=== PATIENT | male | born 1960 | race Caucasian/White ===

== ENCOUNTER 2017-05-26 20:18 | Observation (INO) ==
[2017-05-26] MEDS ORDERED: Aspirin 81 MG TAB.CHEW PO ONE (20:21)
[2017-05-26] MEDS ORDERED: Ketorolac 30 MG/ML VIAL IVP ONE (20:21)
--- NOTE | 2017-05-26 20:23 | Emergency Department Note ---
Disposition Clinical Impression: Chest pain Disposition: Admitted As Inpatient Condition: Fair Time of Disposition: 22:16 ([facility]) Chest Pain HPI - General Chief Complaint: ED Chest Pain Stated Complaint: chest pain Time Seen by Provider: 05/26/17 20:20 Source: patient Mode of arrival: ambulatory Limitations: no limitations Vital Signs Reviewed: Yes Nursing Notes Reviewed: Yes - History of Present Illness HPI Narrative: 56-year-old male with right-sided chest pain just lateral to the sternum hurts to breathe [place] maneuvers with raising the arm but is due to have a stress test this coming Monday he denies blurred vision double vision loss vision has been having intermittent chest pains had no cough no hemoptysis no sputum production he denies any abdominal pain and discomfort patient states is worse with respiration worse with movement denies calf pain tenderness she releases denies any additional complaints the entire review of systems Pt complaint: chest pain Onset (ago): hour(s) Duration: intermittent Onset: during exertion Pain Location: right chest Severity: moderate Severity scale (1-10): 5 Quality: aching Pain Radiation: none Improves with: nothing, nitroglycerin (No change) Worsens with: nothing Associated symptoms: Reports: nausea, dyspnea. Denies: vomiting, diaphoresis, sense of impending doom, syncope, palpitations, cough, leg swelling Treatments prior to arrival chest pain: aspirin - Related Data Home Medications Medication Instructions Recorded Confirmed Insulin Glargine,Hum.rec.anlog 75 units SQ HS 03/16/15 05/26/17 [Lantus Solostar] Pravastatin Sodium [Pravachol] 80 mg PO DAILY 03/16/15 05/26/17 metFORMIN [Glucophage] 1,000 mg PO BIDWM 03/16/15 05/26/17 Multivitamin [Multivitamins] 1 each PO DAILY 05/04/16 05/26/17 Losartan Potassium [Cozaar] 50 mg PO DAILY 05/09/16 05/26/17 glipiZIDE [Glipizide] 10 mg PO DAILY 05/09/16 05/26/17 Furosemide [Lasix] 80 mg PO DAILY 11/21/16 05/26/17 Potassium Chloride [Klor-Con 10] 20 meq PO DAILY 11/21/16 05/26/17 Previous Rx's Medication Instructions Recorded Metoprolol [Lopressor] 50 mg PO BID #60 tablet 05/17/16 Allergies Allergy/AdvReac Type Severity Reaction Status Date / Time No Known Allergies Allergy Verified 05/09/16 07:16 All systems ED: reviewed and negative except as stated. Review of Systems: As Per HPI Constitutional: Denies: fever, chills, weakness Eyes: Denies: eye pain, eye discharge ENT ED: Denies: ear pain, throat pain Cardiovascular: Reports: chest pain. Denies: palpitations Respiratory: Denies: cough, dyspnea, wheezes Gastrointestinal: Denies: abdominal pain, nausea, vomiting Genitourinary: Denies: urgency, dysuria Musculoskeletal: Denies: back pain Integumentary: Denies: rash, abrasion Neurological: Denies: headache Psychiatric: Denies: anxiety Endocrine: Denies: fatigue Hematological/Lymphatic: Denies: easy bleeding Chest Pain PMH - Past Medical History Medical history: Reports: arthritis, diabetes, hyperlipidemia, hypertension, myocardial infarction Surgical history: Reports: appendectomy, cholecystectomy, coronary bypass (CABG) , orthopedic, other, other Psychiatric history: Reports: no psych history - Social History Smoking Status: Former smoker Alcohol use: Reports: none Drug use: Reports: none Physical Exam - General Limitations: no limitations General appearance: alert, in no apparent distress, obese - Head Head exam: atraumatic, normocephalic, normal inspection - Eye Eye exam: Present: normal appearance, PERRL, EOMI - ENT ENT exam: normal exam, normal oropharynx, mucous membranes moist, TM's normal bilaterally, normal external ear exam - Neck Neck exam: Present: normal inspection, full ROM, trachea midline - Chest Chest inspection: Present: normal inspection, symmetric chest wall rise - Respiratory Respiratory exam: Present: normal lung sounds bilaterally - Cardiovascular Cardiovascular exam: Present: regular rate, normal rhythm, normal heart sounds - Abdominal Exam Abdominal exam: Present: soft, Non-Tender, normal bowel sounds. Absent: mass, pulsatile mass - Extremities Exam Extremities exam: Present: normal inspection, full ROM, normal capillary refill , other (Left leg is a below-knee amputation). Absent: tenderness, pedal edema , joint swelling, calf tenderness - Back Exam Back exam: Present: normal inspection - Neurological Exam Neurological exam: Present: alert, oriented X3, CN II-XII intact, normal gait - Psychiatric Psychiatric exam: Present: normal affect, normal mood - Skin Skin exam: Present: warm, dry, intact, normal color Course Course Narrative: Seen and examined patient is now resting comfortably pain free patient tried nitroglycerin at home with no relief as result patient was admitted observation due the fact he is having the stress on Monday admitted services Dr. Piña Vital Signs Temperature 96.5 F L 05/26/17 20:18 Pulse Rate 95 05/26/17 20:18 Respiratory Rate 16 05/26/17 20:18 Blood Pressure 189/86 05/26/17 20:18 O2 Sat by Pulse Oximetry 96 05/26/17 20:18 Temperature 98.2 F 05/26/17 23:16 Pulse Rate 90 05/26/17 23:16 Respiratory Rate 18 05/26/17 23:16 Blood Pressure 150/92 05/26/17 23:16 O2 Sat by Pulse Oximetry 95 05/26/17 23:16 Oxygen Delivery Oxygen Delivery Room Air Chest Pain - Differential Diagnosis Likely: chest pain - Medical Records Medical records reviewed: Yes I reviewed the patient's medical records. - Lab Data Lab results reviewed: Yes I reviewed the patient's lab results. Result diagrams: 05/26/17 20:38 05/26/17 20:38 Lab Results 05/26/17 05/26/17 05/26/17 Range/Units 20:38 20:38 20:38 WBC 6.8 (4.3-11.1) K/mcL RBC 5.73 H (4.19-5.50) M/mcL Hgb 16.6 (12.9-16.9) g/dL Hct 48.3 (37.5-50.1) % MCV 84.3 (83.0-100.0) fL MCH 29.0 (28.0-33.3) pg MCHC 34.4 (31.6-35.5) g/dL RDW 13.4 (11.5-14.5) % Plt Count 222 (140-400) K/mcL MPV 9.9 (9.4-12.4) fL Immature Gran % 0.7 (0-4) % Seg Neutrophils % 47.5 % Lymphocytes % 42.7 % Monocytes % 7.5 % Eosinophils % 1.2 % Basophils % 0.4 % Neutrophils # 3.2 (1.6-8.9) K/mcL Lymphocytes # 2.9 (0.6-4.6) K/mcL Monocytes # 0.5 (0.0-1.3) K/mcL Eosinophils # 0.1 (0.0-0.6) K/mcL Basophils # 0.0 (0.0-0.2) K/mcL PT 10.1 (9.4-12.1) Seconds INR 0.9 APTT 28.7 (26.0-36.0) Seconds Sodium (136-145) mEq/L Potassium (3.5-4.5) mEq/L Chloride (98-109) mEq/L Carbon Dioxide (19-29) mEq/L BUN (8-26) mg/dL Creatinine (0.72-1.25) mg/dL Est GFR ( Amer) (> 60) Est GFR (Non-Af Amer) (> 60) BUN/Creatinine Ratio (6-26) Glucose (70-99) mg/dL Calculated Osmolality (280-300) Calcium (8.6-10.8) mg/dL Total Bilirubin (0.2-1.2) mg/dL AST (5-34) Units/L ALT (0-55) Units/L Alkaline Phosphatase (38-126) Units/L Troponin I (0-0.03) ng/mL Serum Total Protein (6.0-8.3) g/dL Albumin (3.5-5.0) g/dL Globulin (2.4-3.5) g/dL Albumin/Globulin Ratio (1.1-2.2) 05/26/17 05/26/17 Range/Units 20:38 20:38 WBC (4.3-11.1) K/mcL RBC (4.19-5.50) M/mcL Hgb (12.9-16.9) g/dL Hct (37.5-50.1) % MCV (83.0-100.0) fL MCH (28.0-33.3) pg MCHC (31.6-35.5) g/dL RDW (11.5-14.5) % Plt Count (140-400) K/mcL MPV (9.4-12.4) fL Immature Gran % (0-4) % Seg Neutrophils % % Lymphocytes % % Monocytes % % Eosinophils % % Basophils % % Neutrophils # (1.6-8.9) K/mcL Lymphocytes # (0.6-4.6) K/mcL Monocytes # (0.0-1.3) K/mcL Eosinophils # (0.0-0.6) K/mcL Basophils # (0.0-0.2) K/mcL PT (9.4-12.1) Seconds INR APTT (26.0-36.0) Seconds Sodium 140 (136-145) mEq/L Potassium 4.2 (3.5-4.5) mEq/L Chloride 103 (98-109) mEq/L Carbon Dioxide 22 (19-29) mEq/L BUN 17 (8-26) mg/dL Creatinine 1.31 H (0.72-1.25) mg/dL Est GFR ( Amer) > 60 (> 60) Est GFR (Non-Af Amer) 56 L (> 60) BUN/Creatinine Ratio 13 (6-26) Glucose 257 H (70-99) mg/dL Calculated Osmolality 300 (280-300) Calcium 10.1 (8.6-10.8) mg/dL Total Bilirubin 0.4 (0.2-1.2) mg/dL AST 22 (5-34) Units/L ALT 29 (0-55) Units/L Alkaline Phosphatase 70 (38-126) Units/L Troponin I 0.01 (0-0.03) ng/mL Serum Total Protein 8.1 (6.0-8.3) g/dL Albumin 3.6 (3.5-5.0) g/dL Globulin 4.5 H (2.4-3.5) g/dL Albumin/Globulin Ratio 0.8 L (1.1-2.2) - Radiology Data Radiology results reviewed: Yes I reviewed the patient's radiology results. ITS Impressions Chest CT 05/26/17 20:20 IMPRESSION: No acute intrathoracic process identified D/ / Malinda Pascal Cha, MD / Malinda Pascal Cha, MD Interpreting Provider: Malinda Pascal Cha, MD - EKG Data EKG attestation: Yes I reviewed and interpreted this EKG. EKG results narrative: Sinus rhythm right bundle branch block rate 95 pr 128 qrs 146 qt 388 r 123 Heart Score - Score History: Moderately Suspicious EKG: Non Specific repolarisation Disturbance Age: 45-65 Risk Factors: Equal/Greater than 3 risk factor or history of atherosclerotic disease Troponin: Less than normal limit HEART Score Total: 5 Critical Care Time Critical Care Time: No
[2017-05-26 20:48] LABS: Basophils % 0.4 %; Eosinophils # 0.1 K/mcL (0.0-0.6); Eosinophils % 1.2 %; Hematocrit 48.3 % (37.5-50.1); Hemoglobin 16.6 g/dL (12.9-16.9); Immature Granulocytes % 0.7 % (0-4); Lymphocytes # 2.9 K/mcL (0.6-4.6); Lymphocytes % 42.7 %; Mean Corpuscular HGB Conc 34.4 g/dL (31.6-35.5); Mean Corpuscular Volume 84.3 fL (83.0-100.0); Mean Platelet Volume 9.9 fL (9.4-12.4); Monocytes # 0.5 K/mcL (0.0-1.3); Monocytes % 7.5 %; Neutrophils # 3.2 K/mcL (1.6-8.9); Platelet Count 222 K/mcL (140-400); Red Blood Count 5.73 M/mcL (4.19-5.50); Red Cell Distribution Width 13.4 % (11.5-14.5); Segmented Neutrophils % 47.5 %
[2017-05-26 20:51] LABS: INR 0.9; Prothrombin Time 10.1 Seconds (9.4-12.1)
[2017-05-26 21:02] LABS: Alanine Aminotransferase 29 Units/L (0-55); Albumin 3.6 g/dL (3.5-5.0); Albumin/Globulin Ratio 0.8 (1.1-2.2); Alkaline Phosphatase 70 Units/L (38-126); Aspartate Amino Transferase 22 Units/L (5-34); BUN/Creatinine Ratio 13 (6-26); Bilirubin,Total 0.4 mg/dL (0.2-1.2); Blood Urea Nitrogen 17 mg/dL (8-26); Calcium 10.1 mg/dL (8.6-10.8); Carbon Dioxide 22 mEq/L (19-29); Chloride 103 mEq/L (98-109); Globulin 4.5 g/dL (2.4-3.5); Glucose 257 mg/dL (70-99); Osmolality,Calculated 300 (280-300); Potassium 4.2 mEq/L (3.5-4.5); Total Protein 8.1 g/dL (6.0-8.3); eGFR For African Americans > 60 (> 60); eGFR For Non-African Americans 56 (> 60)
[2017-05-26 21:06] LABS: Sodium 140 mEq/L (136-145)
[2017-05-27] MEDS ORDERED: *HR* HYDROcodone/Acet 5/325 mg TABLET PO PRN
[2017-05-27] MEDS ORDERED: D5% in Water 1,000 ML IVC PRN
[2017-05-27] MEDS ORDERED: Naloxone 0.4 MG/ML INJ IVP PRN
[2017-05-27] MEDS ORDERED: Dextrose Gel 15 GM PO PRN ×2
[2017-05-27] MEDS ORDERED: Ondansetron ODT 4 MG TAB.RAPDIS SL PRN
[2017-05-27] MEDS ORDERED: *HR* Dextrose 50 % in Water (Syg) 50 ML SYRINGE IVP PRN
[2017-05-27 02:53] LABS: Basophils % 0.3 %; Eosinophils # 0.1 K/mcL (0.0-0.6); Eosinophils % 1.3 %; Hematocrit 43.1 % (37.5-50.1); Hemoglobin 14.7 g/dL (12.9-16.9); Lymphocytes # 3.2 K/mcL (0.6-4.6); Lymphocytes % 46.3 %; Mean Corpuscular HGB Conc 34.1 g/dL (31.6-35.5); Mean Corpuscular Hemoglobin 29.2 pg (28.0-33.3); Mean Corpuscular Volume 85.5 fL (83.0-100.0); Mean Platelet Volume 9.5 fL (9.4-12.4); Monocytes # 0.6 K/mcL (0.0-1.3); Monocytes % 8.3 %; Platelet Count 187 K/mcL (140-400); Red Blood Count 5.04 M/mcL (4.19-5.50); Red Cell Distribution Width 13.5 % (11.5-14.5); Segmented Neutrophils % 42.8 %
[2017-05-27 03:05] LABS: BUN/Creatinine Ratio 21 (6-26); Blood Urea Nitrogen 27 mg/dL (8-26); Calcium 9.6 mg/dL (8.6-10.8); Carbon Dioxide 25 mEq/L (19-29); Chloride 107 mEq/L (98-109); Glucose 105 mg/dL (70-99); Osmolality,Calculated 301 (280-300); Sodium 143 mEq/L (136-145); eGFR For African Americans > 60 (> 60); eGFR For Non-African Americans 56 (> 60)
[2017-05-27] MEDS ORDERED: Insulin LISPRO 300 UNITS/3 ML VIAL SQ SCH (07:30)
[2017-05-27] MEDS ORDERED: *HR* Metformin 500 MG TABLET PO SCH (08:00)
[2017-05-27] MEDS ORDERED: Furosemide 40 MG TABLET PO SCH (09:00)
[2017-05-27] MEDS ORDERED: *HR* GlipiZIDE 5 MG TABLET PO SCH (09:00)
[2017-05-27] MEDS ORDERED: Multivit/Ca/Min/Fe/FA 1 TAB TABLET PO SCH (09:00)
[2017-05-27 10:35] VITALS: BP 116/71
--- NOTE | 2017-05-27 12:04 | Internal Med History&Physical ---
Date of Encounter: 05/27/17 Time of Encounter: 11:30 Assessment and Plan (1) Chest pain Current visit: Yes Status: Acute Now resolved. Doubt myocardial ischemic origin. Repeat cardiac enzymes were ordered through emergency room. Qualifiers: Chest pain type: unspecified Qualified Code(s): R07.9 - Chest pain, unspecified (2) Azotemia Current visit: Yes Status: Acute Creatinine was 1.13 on 12/21/2016. His PCP can monitor this. (3) Hypertension Current visit: No Status: Chronic Continue Cozaar and Lopressor. Qualifiers: Hypertension type: essential hypertension Qualified Code(s): I10 - Essential (primary) hypertension Internal Medicine - H&P: HPI Chief complaint: Chest pain Admitted From: Emergency Dept Plans for Post Hospital Care: Home History of present illness: Mr. Dinh is a 56 year old male who came to emergency room stating he had onset of chest pain while propelling himself in his wheelchair back up his driveway. He describes it as a sharp discomfort in his right chest area. He has had the sensation several times over the past 2 months but was previously less severe and shorter duration. His daughter insisted he come to emergency room the following day when the pain persisted. He was evaluated and admitted to [facility] floor for ongoing care needs. He states the pain has resolved now and he feels back to his baseline and wishes to be discharged home. Cardiovascular history is significant for hypertension but no known ME heart failure DVT or pulmonary embolus. He has known ASHD and had 3 vessel CABG April 2016 at [facility]. Past Med Surg Social Fam HX - Past Medical History Medical history: arthritis, diabetes, hyperlipidemia, hypertension, myocardial infarction Psychiatric history: no psych history - Past Surgical History Surgical History: appendectomy, cholecystectomy, coronary bypass (CABG), orthopedic, other, other - Social History Smoking Status: Former smoker Smokeless Tobacco Status: No Alcohol use: none Drug use: none - Family History Mother Family Member Ethnicity: Non- Living Status: Hx Family Cardiac Disorders: Yes Hx Family Respiratory Disorders: Yes Hx Family Cancer: Yes Hx Family GI Disorders: Yes Hx Family Endocrine Disorder: Yes Hx Family Neuromuscular Disorders: No Hx Family Neurologic Disorders: No Hx Family HEENT Disorders: No Hx Family Autoimmune Disorders: No Father Living Status: Still Living Hx Family Cardiac Disorders: Yes Internal Medicine - H&P: Meds Insulin Glargine,Hum.rec.anlog [Lantus Solostar] 75 units SQ HS 03/16/15 [ History] Pravastatin Sodium [Pravachol] 80 mg PO DAILY 03/16/15 [History] metFORMIN [Glucophage] 1,000 mg PO BIDWM 03/16/15 [History] Multivitamin [Multivitamins] 1 each PO DAILY 05/04/16 [History] Losartan Potassium [Cozaar] 50 mg PO DAILY 05/09/16 [History] glipiZIDE [Glipizide] 10 mg PO DAILY 05/09/16 [History] Metoprolol [Lopressor] 50 mg PO BID #60 tablet 05/17/16 [Rx] Furosemide [Lasix] 80 mg PO DAILY 11/21/16 [History] Potassium Chloride [Klor-Con 10] 20 meq PO DAILY 11/21/16 [History] 3 Allergy/AdvReac Type Severity Reaction Status Date / Time No Known Allergies Allergy Verified 05/09/16 07:16 All Systems PM: A 10-system review of systems was performed and is negative for pertinent findings except as documented above in the HPI. Review of systems: Gen.: He states his weight has been stable past few months Cardiovascular: As per history of present illness Respiratory: He smoked from age [age] up to one pack per day. He does not have chronic lung disease and does not use home oxygen. He has not been tested for sleep apnea. GI: He has had cholecystectomy. He denies disorders of his liver or exocrine pancreas. He had 4 precancerous polyps removed on April 2017 colonoscopy. : He has had elevated creatinine on several labs in the past. He denies knowledge of chronic kidney disease. Denies other kidney bladder or prostate disorders. Neurologic: He denies large distribution strokes or seizures. Endocrine: He was diagnosed with DM 2 in 1999. He has hyperlipidemia but denies thyroid disease Hematology/oncology: Denies blood disorders cancers or anemia Psychiatric: He denies anxiety depression or other mental health issues Musk skeletal: He has DJD but denies other bone joint or muscle disorders. He had left BKA 2009 for nonhealing diabetic foot ulcer. He had right great toe amputation several years ago. - Constitutional Vitals: Temp Pulse Resp BP Pulse Ox 97.8 F 83 18 116/71 97 05/27/17 10:32 05/27/17 10:32 05/27/17 10:32 05/27/17 10:32 05/27/17 10:32 Exam: Gen.: He is a well-developed well-nourished male who appears in no acute distress at present time HEENT: Head is atraumatic and normocephalic. Eyes: EOMI. There is no scleral icterus. Mouth: Mucosa is moist. Neck: Supple and nontender. There is no thyromegaly or adenopathy noted. Heart: Regular without murmurs gallops or ectopics Lungs: No wheezes or crackles are heard. Chest: He is not tender in his costosternal joints to palpation. Abdomen: He has a large abdomen. There is a well-healed right upper quadrant scar. There are healed upper abdominal midline incisions from CABG surgery. The abdomen is nontender to palpation. Extremities: The right foot shows great toe amputation with well-healed scar. Dorsalis pedis and posterior tibial pulses are nonpalpable. He has well-healed left BKA. Neurologic: Mental status: He is talkative and a good historian. Cranial nerves : Smile is symmetric. Forehead wrinkles bilaterally. Tongue protrudes midline. EOMI. Motor: There is no pronator drift. Cerebellar: Finger to nose is intact bilaterally. Skin: Warm and dry Internal Med - H&P Results - Labs CBC & Chem 7: 05/27/17 02:43 05/27/17 02:43 Labs: Short CBC 05/27/17 Range/Units 02:43 WBC 7.0 (4.3-11.1) K/mcL Hgb 14.7 D (12.9-16.9) g/dL Hct 43.1 (37.5-50.1) % Plt Count 187 (140-400) K/mcL Neutrophils # 3.0 (1.6-8.9) K/mcL BMP 05/27/17 02:43 Sodium 143 Potassium 4.0 Chloride 107 Carbon Dioxide 25 BUN 27 H D Creatinine 1.31 H Glucose 105 H Calcium 9.6 Cardiac Enzymes 05/27/17 05/27/17 Range/Units 02:43 07:43 Troponin I 0.01 0.01 (0-0.03) ng/mL
--- NOTE | 2017-05-27 12:18 | Discharge Summary ---
Date of Encounter: 05/27/17 Time of Encounter: 11:30 - Discharge Diagnosis (1) Chest pain Priority: Primary Status: Resolved Qualifiers: Chest pain type: unspecified Qualified Code(s): R07.9 - Chest pain, unspecified (2) Azotemia Priority: Secondary Status: Acute (3) Hypertension Priority: Secondary Status: Chronic Qualifiers: Hypertension type: essential hypertension Qualified Code(s): I10 - Essential (primary) hypertension - Discharge Medications Home Medications: Insulin Glargine,Hum.rec.anlog [Lantus Solostar] 75 units SQ HS 03/16/15 [ History] Pravastatin Sodium [Pravachol] 80 mg PO DAILY 03/16/15 [History] metFORMIN [Glucophage] 1,000 mg PO BIDWM 03/16/15 [History] Multivitamin [Multivitamins] 1 each PO DAILY 05/04/16 [History] Losartan Potassium [Cozaar] 50 mg PO DAILY 05/09/16 [History] glipiZIDE [Glipizide] 10 mg PO DAILY 05/09/16 [History] Metoprolol [Lopressor] 50 mg PO BID #60 tablet 05/17/16 [Rx] Furosemide [Lasix] 80 mg PO DAILY 11/21/16 [History] Potassium Chloride [Klor-Con 10] 20 meq PO DAILY 11/21/16 [History] Allergies/Adverse Reactions: 3 Allergy/AdvReac Type Severity Reaction Status Date / Time No Known Allergies Allergy Verified 05/09/16 07:16 Date of admission: 05/26/17 22:27 Primary care physician: Jerrell Drake Jr, MD - Patient Status Disposition: Home, Self-Care Condition: Fair Overall status at discharge: patient is progressing back to baseline - Discharge Instructions Follow Up With: Jerrell Drake Jr, MD [Primary Care Provider] - - Diet and Activity Activity: resume usual activities as tolerated Diet: diabetic diet Hospital course: Mr. Dinh is a 56 year old male who came to emergency room stating he had onset of chest pain while propelling himself in his wheelchair back up his driveway. He describes it as a sharp discomfort in his right chest area. He has had the sensation several times over the past 2 months but was previously less severe and shorter duration. His daughter insisted he come to emergency room the following day when the pain persisted. He was evaluated and admitted to [facility] for ongoing care needs. Initial orders were written by the emergency room physician. I saw him on May 27 and performed a history physical and discharge. Repeat cardiac enzymes showed no evidence of myocardial damage. When I saw him I felt the pain was likely to be chest wall origin. The pain was resolved when I saw him and could not be reproduced with activity. He felt stable for discharge home which I felt was reasonable. 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 I discussed with him the acute azotemia. His PCP can monitor this. - Time Spent with Patient Total time spent providing and/or coordinating discharge services: - Constitutional Vitals: Temp Pulse Resp BP Pulse Ox 97.8 F 83 18 116/71 97 05/27/17 10:32 05/27/17 10:32 05/27/17 10:32 05/27/17 10:32 05/27/17 10:32
[2017-05-27] MEDS ORDERED: Insulin DETEMIR 100 UNIT/ML X5UNITS SQ SCH (21:00)
--- NOTE | 2017-05-29 15:25 | Electrocardiograph Report ---
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
== END 2017-05-27 13:43 | disposition home or self-care (01) ==
LOC: INPPIK 20:18 → EMEROOPIK 20:18 → INPPIK 23:09
PROVIDERS: ADMIT Internal Medicine; ATTEND Internal Medicine

== ENCOUNTER 2021-07-26 20:19 | Inpatient (IN) ==
[2021-07-26] MEDS ORDERED: *HR* Labetalol 20 MG/4 ML SYRINGE IVP ONE (20:36)
[2021-07-26] MEDS ORDERED: Furosemide 40 MG/4 ML VIAL IVP ONE (20:36)
[2021-07-26 21:04] LABS: Basophils % 0.2 %; Eosinophils % 0.2 %; Hematocrit 34.8 % (37.5-50.1); Hemoglobin 10.7 g/dL (12.9-16.9); Immature Granulocytes % 3.3 % (0-4); Lymphocytes # 1.9 K/mcL (0.6-4.6); Lymphocytes % 28.4 %; Mean Corpuscular HGB Conc 30.7 g/dL (31.6-35.5); Mean Corpuscular Hemoglobin 26.9 pg (28.0-33.3); Mean Corpuscular Volume 87.4 fL (83.0-100.0); Mean Platelet Volume 9.4 fL (9.4-12.4); Monocytes # 1.1 K/mcL (0.0-1.3); Monocytes % 16.5 %; Neutrophils # 3.4 K/mcL (1.6-8.9); Platelet Count 183 K/mcL (140-400); Red Blood Count 3.98 M/mcL (4.19-5.50); Red Cell Distribution Width 16.1 % (11.5-14.5); Segmented Neutrophils % 51.4 %; White Blood Count 6.6 K/mcL (4.3-11.1)
[2021-07-26 21:12] LABS: INR 3.1; Prothrombin Time 34.7 Seconds (9.4-12.1)
[2021-07-26 21:14] LABS: Activated Partial Thrombo Time 58.7 Seconds (26.0-36.0)
[2021-07-26 21:23] LABS: Albumin/Globulin Ratio 0.9 (1.1-2.2); Bilirubin,Direct 0.1 mg/dL (0.0-0.2); Bilirubin,Indirect 0.3 mg/dL (0.0-1.0); Bilirubin,Total 0.4 mg/dL (0.3-1.0); Calcium 8.4 mg/dL (8.6-10.3); Globulin 3.5 g/dL (2.4-3.5); Potassium 4.7 mEq/L (3.5-5.1); Total Protein 6.5 g/dL (6.4-8.9); Troponin I 0.03 ng/mL (< 0.04)
[2021-07-27] MEDS ORDERED: Ondansetron ODT 4 MG TAB.RAPDIS SL PRN (00:11)
[2021-07-27] MEDS ORDERED: Mag Hydrox/Al Hydrox/Simeth 30 ML UDC PO PRN (00:11)
[2021-07-27] MEDS ORDERED: MOM Conc 10 ML UD.LIQ PO PRN (00:11)
[2021-07-27] MEDS ORDERED: Dextrose 4 GM Chewable Tablets PO PRN ×2 (00:11)
[2021-07-27] MEDS ORDERED: Melatonin 3 MG TABLET PO PRN (00:11)
[2021-07-27] MEDS ORDERED: *HR* Labetalol 20 MG/4 ML SYRINGE IVP PRN (00:11)
[2021-07-27] MEDS ORDERED: Naloxone 0.4 MG/ML INJ IVP PRN (00:11)
[2021-07-27] MEDS ORDERED: D5% in Water 1,000 ML IVC PRN (00:11)
[2021-07-27] MEDS ORDERED: *HR* Dextrose 50 % in Water (Syg) 50 ML SYRINGE IVP PRN (00:11)
[2021-07-27] MEDS ORDERED: Albumin 25% 25gram/100mL 25 GM/100 ML IV.SOLN IVPB SCH (06:00)
[2021-07-27 07:14] LABS: Calcium 8.3 mg/dL (8.6-10.3); Potassium 4.3 mEq/L (3.5-5.1)
[2021-07-27] MEDS ORDERED: Furosemide 20 MG/2 ML VIAL IVP SCH (08:00)
[2021-07-27 08:03] LABS: INR 3.5; Prothrombin Time 38.5 Seconds (9.4-12.1)
[2021-07-27] MEDS: carvediloL 6.25 MG TABLET PO SCH ×2 (08:17→16:20)
[2021-07-27] MEDS: Finasteride 5 MG TABLET PO SCH (08:17)
[2021-07-27] MEDS: Cholecalciferol (D-3) 1,000 UNIT (25MCG) TABLET PO SCH (08:17)
[2021-07-27] MEDS: Multivit/Ca/Min/Fe/FA 1 TAB TABLET PO SCH (08:17)
[2021-07-27] MEDS: *HR* GlipiZIDE XL (24 HR) 10 MG TABLET PO SCH (08:17)
[2021-07-27] MEDS: Insulin LISPRO 300 UNITS/3 ML VIAL SUBQ SCH ×6 (08:19→20:09)
[2021-07-27] MEDS ORDERED: Insulin DETEMIR 100 UNIT/ML per UNIT SUBQ SCH (09:00)
[2021-07-27] MEDS ORDERED: Insulin DETEMIR 100 UNIT/ML X5UNITS SUBQ SCH ×3 (09:00→21:00)
[2021-07-27] MEDS ORDERED: Perflutren Lipid Microsphere 1.3 ML in 0.9 % Sodium Chloride 8.7 ML IVP PRN (09:33)
[2021-07-27] MEDS: Albumin 25% 25gram/100mL 25 GM/100 ML IV.SOLN IVPB SCH (16:18)
[2021-07-27] MEDS: 0.9 % Sodium Chloride 250 ML IVC SCH (16:20)
[2021-07-27] MEDS: hydrALAZINE 25 MG TABLET PO SCH ×2 (16:20→23:12)
[2021-07-27] MEDS ORDERED: Warfarin perPT PO SCH (18:00)
[2021-07-27] MEDS: Furosemide 20 MG/2 ML VIAL IVP SCH (19:28)
[2021-07-27] MEDS: Insulin DETEMIR 100 UNIT/ML X5UNITS SUBQ SCH (20:08)
[2021-07-28] MEDS: Albumin 25% 25gram/100mL 25 GM/100 ML IV.SOLN IVPB SCH (03:15)
[2021-07-28] MEDS: 0.9 % Sodium Chloride 250 ML IVC SCH (04:55)
[2021-07-28] MEDS: Furosemide 20 MG/2 ML VIAL IVP SCH (04:56)
[2021-07-28] MEDS: Insulin LISPRO 300 UNITS/3 ML VIAL SUBQ SCH ×4 (07:48→16:50)
[2021-07-28 07:56] LABS: INR 3.1; Prothrombin Time 34.6 Seconds (9.4-12.1)
[2021-07-28 08:06] LABS: Basophils % 0.3 %; Eosinophils % 0.5 %; Hematocrit 32.4 % (37.5-50.1); Hemoglobin 9.9 g/dL (12.9-16.9); Immature Granulocytes % 1.8 % (0-4); Lymphocytes # 2.2 K/mcL (0.6-4.6); Lymphocytes % 27.3 %; Mean Corpuscular HGB Conc 30.6 g/dL (31.6-35.5); Mean Corpuscular Hemoglobin 26.8 pg (28.0-33.3); Mean Corpuscular Volume 87.8 fL (83.0-100.0); Mean Platelet Volume 9.3 fL (9.4-12.4); Monocytes # 1.7 K/mcL (0.0-1.3); Monocytes % 21.3 %; Neutrophils # 3.9 K/mcL (1.6-8.9); Platelet Count 157 K/mcL (140-400); Red Blood Count 3.69 M/mcL (4.19-5.50); Red Cell Distribution Width 16.2 % (11.5-14.5); Segmented Neutrophils % 48.8 %; White Blood Count 7.9 K/mcL (4.3-11.1)
[2021-07-28] MEDS: Cholecalciferol (D-3) 1,000 UNIT (25MCG) TABLET PO SCH (08:10)
[2021-07-28] MEDS: Finasteride 5 MG TABLET PO SCH (08:11)
[2021-07-28] MEDS: carvediloL 6.25 MG TABLET PO SCH ×2 (08:11→16:27)
[2021-07-28] MEDS: Multivit/Ca/Min/Fe/FA 1 TAB TABLET PO SCH (08:11)
[2021-07-28] MEDS: *HR* GlipiZIDE XL (24 HR) 10 MG TABLET PO SCH (08:11)
[2021-07-28] MEDS: hydrALAZINE 25 MG TABLET PO SCH ×3 (08:11→23:16)
[2021-07-28 08:19] LABS: Calcium 8.6 mg/dL (8.6-10.3); Magnesium 1.8 mg/dL (1.6-2.6)
[2021-07-28] MEDS: Insulin DETEMIR 100 UNIT/ML X5UNITS SUBQ SCH ×2 (09:30→21:03)
[2021-07-28 10:07] LABS: Estimated Average Glucose 206 mg/dl; Hemoglobin A1C 8.8 %
[2021-07-28 11:05] LABS: Platelet Estimate Normal (Normal)
[2021-07-29 06:29] VITALS: RESP 18; TEMP 98.3
[2021-07-29 07:23] LABS: Basophils % 0.1 %; Eosinophils % 0.3 %; Hematocrit 34.4 % (37.5-50.1); Hemoglobin 10.6 g/dL (12.9-16.9); Immature Granulocytes % 1.7 % (0-4); Lymphocytes % 27.6 %; Mean Corpuscular HGB Conc 30.8 g/dL (31.6-35.5); Mean Corpuscular Hemoglobin 26.4 pg (28.0-33.3); Mean Corpuscular Volume 85.6 fL (83.0-100.0); Mean Platelet Volume 9.5 fL (9.4-12.4); Monocytes # 1.5 K/mcL (0.0-1.3); Monocytes % 20.8 %; Neutrophils # 3.5 K/mcL (1.6-8.9); Platelet Count 168 K/mcL (140-400); Red Blood Count 4.02 M/mcL (4.19-5.50); Red Cell Distribution Width 15.9 % (11.5-14.5); Segmented Neutrophils % 49.5 %; White Blood Count 7.2 K/mcL (4.3-11.1)
[2021-07-29] MEDS: Insulin LISPRO 300 UNITS/3 ML VIAL SUBQ SCH ×2 (07:23→12:02)
[2021-07-29 07:27] LABS: Calcium 8.5 mg/dL (8.6-10.3); INR 1.9
[2021-07-29 08:25] LABS: Platelet Estimate Normal (Normal)
[2021-07-29 08:44] VITALS: O2SAT 97
[2021-07-29] MEDS: Cholecalciferol (D-3) 1,000 UNIT (25MCG) TABLET PO SCH (08:45)
[2021-07-29] MEDS: hydrALAZINE 25 MG TABLET PO SCH (08:46)
[2021-07-29] MEDS: Finasteride 5 MG TABLET PO SCH (08:46)
[2021-07-29] MEDS: carvediloL 6.25 MG TABLET PO SCH (08:46)
[2021-07-29] MEDS: Multivit/Ca/Min/Fe/FA 1 TAB TABLET PO SCH (08:46)
[2021-07-29] MEDS: Insulin DETEMIR 100 UNIT/ML X5UNITS SUBQ SCH (08:47)
[2021-07-29 12:01] VITALS: BP 159/73; PULSE 75
[2021-07-29] MEDS ORDERED: *HR* Warfarin 5 MG TABLET PO ONE (18:00)
[2021-07-30] MEDS ORDERED: Furosemide 20 MG TABLET PO SCH (09:00)
== END 2021-07-29 14:50 | disposition home or self-care (01) | DRG 291 ==
LOC: EMEROOPIK 20:19 → INPPIK 20:19
PROVIDERS: ADMIT Internal Medicine; ATTEND Internal Medicine